=== PATIENT | female | born 1995 | race Caucasian/White ===

== ENCOUNTER 2017-12-22 12:36 | Emergency (ER) | payer OTHER, MEDICAID, SELFPAY ==
[2017-12-22 12:37] VITALS: PULSE 78; RESP 98; O2SAT 16
[2017-12-22 12:38] VITALS: BP 86/51; PULSE 81; RESP 15; O2SAT 96
[2017-12-22] MEDS: Dextrose 50%-Water 25 GM/50 ML DISP.SYRIN IV (12:41)
[2017-12-22 13:19] LABS: Absolute Lymphocyte Count 3.51 X10^3/ul (0.83-4.51); Absolute Neutrophil Count 2.5 X10^3/uL (2.0-7.7); Basophil# 0.06 X10^3/uL; Basophil% 0.9 % (0-1); Eosinophil# 0.17 X10^3/uL; Eosinophils% 2.5 % (0-5); Hematocrit 41.3 % (37-47); Hemoglobin 13.7 g/dl (12.0-15.0); Lymphocyte # 3.51 X10^3/ul (4.0); Lymphocyte % 52.3 % (19-41); Mean Corp Hgb Conc 33.2 g/gl (32-36); Mean Corpuscular Hgb 30.2 pg (27.0-32.0); Mean Corpuscular Volume 91.2 fL (81-99); Monocyte# 0.42 X10^3/uL; Monocyte% 6.3 % (0-10); Neutrophil # 2.54 X10^3/uL (2.7-7.7); Neutrophil % 37.9 % (47-70); POSITIVE COUNT NO; POSITIVE DIFFERENTIAL NO; POSITIVE MORPHOLOGY NO; Platelet Count 280 K/mm3 (150-450); RBC Distribution Width CV 12.5 % (11.6-14.6); RBC Distribution Width SD 41.7 fl (35.1-43.9); Red Blood Count 4.53 M/mm3 (4.2-5.4); White Blood Count 6.7 K/mm3 (4.4-11.0)
[2017-12-22 13:27] LABS: ALB/GLOB Ratio 0.9 RATIO (0.9-2.4); AST(SGOT) 17 U/L (15-37); Alanine Aminotransfer ALT/SGPT 19 U/L (13-56); Albumin, Serum 3.7 g/dL (3.2-5.0); Alkaline Phosphatase 51 U/L (45-117); Anion Gap 6 (5-15); BUN 12 mg/dL (7-18); BUN/Creat Ratio 12.5 RATIO (10-20); Calcium,Total 8.4 mg/dL (8.5-10.1); Chloride 106 mmol/L (98-107); Creatinine, Serum 0.96 mg/dL (0.55-1.02); EST Glomerular Filtration Rate 78 mL/min (>60); Est Glom Filt Rate - Afr Amer 94 mL/min (>60); Globulin 3.9 g/dL (2.2-4.2); Glucose 65 mg/dL (74-106); Potassium 3.1 mmol/L (3.5-5.1); Protein, Total 7.6 g/dL (6.4-8.2); Sodium Level 139 mmol/L (136-145)
[2017-12-22] MEDS: 0.9% Normal Saline 1,000 ML 150 ML IV (13:28)
[2017-12-22 13:37] VITALS: BP 111/81; PULSE 86; RESP 20; O2SAT 100
[2017-12-22 14:51] LABS: Bedside Glucose 339 mg/dL (70-110)
--- NOTE | 2017-12-22 15:06 | ED.VISSUMM ---
- ER Visit Summary Date of Service: 12/22/17 Chief Complaint: [Hypoglycemia] History of Present Illness: The patient is a 22 F [presents to the emergency department with complaint of a hypoglycemic episode. Patient is accompanied by her boyfriend. Patient presented via EMS. Patient apparently was checked on by her boyfriend about noon when she did not wake up from the night before. Patient would awaken but appears confused and disoriented and the boyfriend brought her a juice box which the patient was not able to drink and sounds like her teeth just kind of clenched. The boyfriend called EMS. Boyfriend did not witness any seizure-like activity. Patient does have a history of seizures but has not had a seizure in over 2 years. Patient does have an insulin pump. EMS did give patient some glucose gel and then they put an IV and gave her an amp of D50. On arrival to ER patient without complaints but does not have much recollection's of the events leading up to her coming to the emergency department. Patient denies recent illness. Patient did eat dinner last night. Patient's mother states that patient is supposed to be wearing some sort of a monitor that will guide her insulin therapy with her insulin pump the patient has not been wearing it as the patient states that it does not always function properly.] Physical Examination: [HEENT-PERRLA, EOMI. Cranial nerves II through XII grossly intact. TMs clear. Mucous membranes moist. No adenopathy. No bite wounds to the tongue or oral mucosa Cardiovascular-regular rate and rhythm without murmur or ectopy Lungs-clear to auscultation, chest wall stable without crepitus or subcu emphysema Abdomen-normoactive bowel sounds, soft, nontender, no rebound or rigidity, no peritoneal signs. Neuro ufie-rykutm-qnev and heel adame testing within normal limits, negative Romberg, negative for drift, fundi benign Extremities-intact ?4, normal range of motion, normal pulses, atraumatic] Test Results: [CBC with differential was unremarkable. Chemistries show slightly depressed potassium at 3.3 for which I did give her 40 mEq of potassium chloride p.o.] Emergency Department Course and Treatment: [Patient was given a meal tray and observed in the emergency department. Initially we paused her insulin pump. 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 Patient advised to eat regular meals.] Disposition: [Discharged home in stable condition] Impression: [Hypoglycemia-secondary to insulin reaction] This note was generated with [employer] dictation software. It may contain incorrect words, spelling, and punctuation that were not noted in review of the chart prior to signing ED Disposition - Plan for ED Patient: Chief Complaint: Hypoglycemia Referrals: Care Physician,No Primary [Primary Care Provider] -
--- NOTE | 2017-12-22 15:10 | ED.DCSUM_ITS ---
- ER Visit Summary Date of Service: 12/22/17 Chief Complaint: [Hypoglycemia] History of Present Illness: The patient is a 22 F [presents to the emergency department with complaint of a hypoglycemic episode. Patient is accompanied by her boyfriend. Patient presented via EMS. Patient apparently was checked on by her boyfriend about noon when she did not wake up from the night before. Patient would awaken but appears confused and disoriented and the boyfriend brought her a juice box which the patient was not able to drink and sounds like her teeth just kind of clenched. The boyfriend called EMS. Boyfriend did not witness any seizure-like activity. Patient does have a history of seizures but has not had a seizure in over 2 years. Patient does have an insulin pump. EMS did give patient some glucose gel and then they put an IV and gave her an amp of D50. On arrival to ER patient without complaints but does not have much recollection's of the events leading up to her coming to the emergency department. Patient denies recent illness. Patient did eat dinner last night. Patient's mother states that patient is supposed to be wearing some sort of a monitor that will guide her insulin therapy with her insulin pump the patient has not been wearing it as the patient states that it does not always function properly.] Physical Examination: [HEENT-PERRLA, EOMI. Cranial nerves II through XII grossly intact. TMs clear. Mucous membranes moist. No adenopathy. No bite wounds to the tongue or oral mucosa Cardiovascular-regular rate and rhythm without murmur or ectopy Lungs-clear to auscultation, chest wall stable without crepitus or subcu emphysema Abdomen-normoactive bowel sounds, soft, nontender, no rebound or rigidity, no peritoneal signs. Neuro aqwf-igysff-egmw and heel adame testing within normal limits, negative Romberg, negative for drift, fundi benign Extremities-intact ?4, normal range of motion, normal pulses, atraumatic] Test Results: [CBC with differential was unremarkable. Chemistries show slightly depressed potassium at 3.3 for which I did give her 40 mEq of potassium chloride p.o.] Emergency Department Course and Treatment: [Patient was given a meal tray and observed in the emergency department. Initially we paused her insulin pump. An hour after eating patient's blood sugar over 300 and her insulin pump was restarted.] Treatment Plan: [Patient advised to follow-up with her commodities manager. Patient advised to eat regular meals.] Disposition: [Discharged home in stable condition] Impression: [Hypoglycemia-secondary to insulin reaction] This note was generated with [employer] dictation software. It may contain incorrect words, spelling, and punctuation that were not noted in review of the chart prior to signing ED Disposition - Plan for ED Patient: Chief Complaint: Hypoglycemia Referrals: Care Physician,No Primary [Primary Care Provider] -
--- NOTE | 2017-12-22 15:12 | DCINST.ED_ITS ---
ED Disposition - Plan for ED Patient: Chief Complaint: Hypoglycemia Instructions: ED Diabetes Hypoglycemia Insulin React Referrals: Care Physician,No Primary [Primary Care Provider] - Additional Instructions: follow up with your senior program analyst. Eat regular meals
[2017-12-22 15:22] VITALS: BP 115/79; PULSE 78; RESP 16; O2SAT 99
[2017-12-23 09:01] LABS: Bedside Glucose 59 mg/dL (70-110)
== END 2017-12-22 15:24 | disposition home or self-care (01) ==
PROVIDERS: Emergency Provider Emergency Medicine
DX: E11.649 Type 2 diabetes mellitus with hypoglycemia without coma (principal); T38.3X5A Adverse effect of insulin and oral hypoglycemic [antidiabetic] drugs, initial encounter; Z79.4 Long term (current) use of insulin; Z96.41 Presence of insulin pump (external) (internal); Y92.9 Unspecified place or not applicable; E03.9 Hypothyroidism, unspecified; G40.909 Epilepsy, unspecified, not intractable, without status epilepticus; Z79.899 Other long term (current) drug therapy
CPT/HCPCS: 80053; 82962; 85025; 96361; 96374; 99285; J7030; A4216

== ENCOUNTER 2018-01-18 10:54 | Emergency (ER) | payer OTHER, MEDICAID, SELFPAY ==
[2018-01-18 10:57] VITALS: BP 103/78; BP 113/81; PULSE 105; PULSE 97; RESP 18; TEMP 36.9; O2SAT 98; BMI 26.0
--- NOTE | 2018-01-18 11:03 | ED.VISSUMM ---
- ER Visit Summary Date of Service: 01/18/18 Chief Complaint: Hypoglycemia History of Present Illness: The patient is a 22 F who presents with low blood sugar. She states she felt very tired and EMS was called so they checked her blood sugar and it was 66. She is a type I diabetic and has insulin pump. She states she is not exactly quite sure what happened. She was given oral glucose and now she is starting to feel better but feels mildly fatigued. She has had history of hypoglycemia in the past. Physical Examination: Vital signs reviewed. HEENT exam unremarkable. Heart is regular rate and rhythm without murmurs. Lungs are clear to auscultation. Abdomen is soft and nontender. Extremities reveal no edema. Skin exam normal. Neurologic exam normal. Test Results: Initial blood glucose was 66 by EMS. Repeat glucose was 37 Emergency Department Course and Treatment: We repeated the patient's blood glucose here and it was 37. She was given things to eat. I then asked her if her insulin pump was still on and she said yes so we turned it off. She now feels much better. Patient will check her blood sugars at home and eat frequent meals today. She will need to follow-up with her PCP Treatment Plan: [] Disposition: Discharge Impression: Hypoglycemia This note was generated with [employer] dictation software. It may contain incorrect words, spelling, and punctuation that were not noted in review of the chart prior to signing ED Disposition - Plan for ED Patient: Chief Complaint: Hypoglycemia Referrals: Care Physician,No Primary [Primary Care Provider] -
[2018-01-18 11:40] LABS: Bedside Glucose 37 mg/dL (70-110)
--- NOTE | 2018-01-18 12:38 | ED.DEP ---
ED Disposition - Plan for ED Patient: Disposition: Home or Assisted Living Chief Complaint: Hypoglycemia Instructions: ED Diabetes Hypoglycemia Insulin React Referrals: Care Physician,No Primary [Primary Care Provider] -
[2018-01-18 12:50] VITALS: BP 120/74; PULSE 95; RESP 14; O2SAT 98
[2018-01-18 12:56] LABS: Bedside Glucose 127 mg/dL (70-110)
== END 2018-01-18 12:51 | disposition home or self-care (01) ==
PROVIDERS: Emergency Provider Emergency Medicine
DX: E10.649 Type 1 diabetes mellitus with hypoglycemia without coma (principal); Z96.41 Presence of insulin pump (external) (internal)
CPT/HCPCS: 82962; 99284; J7030; A4216